=== PATIENT | male | born 1980 | race African-American/Black ===

== ENCOUNTER 2020-04-29 20:50 | Emergency (ER) | payer SELFPAY ==
[~2020-04-29] VITALS: Ht 177.8 cm; Wt 78.2 kg
[2020-04-29 20:58] VITALS: BP 159/111
[2020-04-29] MEDS ORDERED: MUPI22OI2 TP (21:33)
[2020-04-29] MEDS ORDERED: CLOT30SO2 TP (21:33)
[2020-04-29] MEDS ORDERED: CLIN300C9 PO (21:33)
[2020-04-29] MEDS ORDERED: TRAM50TA PO (21:33)
--- NOTE | 2020-04-29 21:34 | PHYS DOC ---
Past Medical History Past Medical History: No Pertinent History (JUVE BRANDON APRN) Past Surgical History: Other Additional Past Surgical Histo: HERNIA (JUVE BRANDON APRN) Smoking Status: Current Every Day Smoker Alcohol Use: None (JUVE BRANDON APRN) General Adult EDM: Chief Complaint: DENTAL PROBLEM HPI: HPI: Patient is a 39 year old male with no significant medical history who presents to the ED today complaining of 10 out of 10 right upper gum dental pain, symptoms began a month ago. Patient states he has an appointment with a dentist on Thursday this week and would like to be on antibiotics before his appointment. Denies any fever. He is also complaining of a rash on the right inner ankle that he states began the same time the tooth pain began. Patient denies anything specifically exacerbating or relieving his dental pain. He states his wisdom tooth are growing sideways on the right upper gum (JUVE BRANDON APRN) Review of Systems: Review of Systems: Constitutional: Denies fever or chills. [] HENT: Reports right upper gum dental pain. Denies nasal congestion or sore throat. [] Musculoskeletal: Denies back pain or joint pain. [] Integument: Reports rash to the right inner ankle Neurologic: Denies headache, focal weakness or sensory changes. [] Psychiatric: Denies depression or anxiety. [] (JUVE BRANDON APRN) Heart Score: Risk Factors: Risk Factors: DM, Current or recent (<one month) smoker, HTN, HLP, family history of CAD, obesity. Risk Scores: Score 0 - 3: 2.5% MACE over next 6 weeks - Discharge Home Score 4 - 6: 20.3% MACE over next 6 weeks - Admit for Clinical Observation Score 7 - 10: 72.7% MACE over next 6 weeks - Early Invasive Strategies (JUVE BRANDON APRN) Current Medications: Current Medications Medications (Trade) Dose Ordered Sig/Kasey Start Time Stop Time Status Last Admin Dose Admin Diphtheria/ Tetanus/Acell Pertussis (ADACEL TDap SYRINGE) 0.5 ml ONCE ONCE 04/29/20 22:00 04/29/20 22:01 (JUVE BRANDON APRN) Allergies: Allergies: Allergies Coded Allergies Type Severity Reaction Last Updated Verified Penicillins Allergy Intermediate 04/29/20 Yes amoxicillin Allergy Intermediate 04/29/20 Yes (JUVE BRANDON APRN) Physical Exam: PE: Constitutional: Well developed, well nourished, no acute distress, non-toxic appearance. [] HENT: Normocephalic, atraumatic, bilateral external ears normal, oropharynx moist, no oral exudates, nose normal. [] Right upper gum with no obvious dental infection. No gum erythema. Skin: Right medial ankle with an area of dry scaly skin with slight erythema. No drainage. Back: No tenderness, no CVA tenderness. [] Extremities: No tenderness, no cyanosis, no clubbing, ROM intact, no edema. [] Neurologic: Alert and oriented X 3, normal motor function, normal sensory function, no focal deficits noted. [] Psychologic: Affect normal, judgement normal, mood normal. [] (JUVE BRANDON APRN) Current Patient Data: Vital Signs: Vital Signs Date Time Temp Pulse Resp B/P (MAP) Pulse Ox O2 Delivery O2 Flow Rate FiO2 04/29/20 20:58 98.9 83 20 159/111 (127) 97 Room Air 98.9 (JUVE BRANDON APRN) EKG: EKG: [] (JUVE BRANDON APRN) Radiology/Procedures: Radiology/Procedures: [] (JUVE BRANDON APRN) Course & Med Decision Making: Course & Med Decision Making Pertinent Labs and Imaging studies reviewed. (See chart for details) This is a 39-year-old male patient presenting to the ED today with dental pain as well as skin infection on the right medial ankle. The infection on the medial ankle appears to be a mix of fungal and bacterial skin infection. Discharged on clindamycin as well as Bactroban ointment and clotrimazole for the skin infection on the medial ankle. Provided reinforcing steel erector to follow-up as well as instructed to follow-up with his dentist on Thursday. Tetanus updated (JUVE BRANDON APRN) Lisandra Disclaimer: Lisandra Disclaimer: This electronic medical record was generated, in whole or in part, using a voice recognition dictation system. (JUVE BRANDON APRN) Departure Departure Impression: Primary Impression: Dentalgia Additional Impressions: Cutaneous candidiasis Skin infection Disposition: 01 DC HOME SELF CARE/HOMELESS Condition: STABLE Referrals: FAUSTINO MOELLER MD follow up in 2 weeks for the skin infection Patient Instructions: Cutaneous Candidiasis, Dental Pain, Skin Infections Additional Instructions: You were evaluated in the emergency room. Please follow-up with your dentist in the course of this week. Also follow-up with the provided reinforcing steel erector for the skin infection on your right foot. Use the prescribed medications as ordered. Scripts Tramadol Hcl (TRAMADOL HCL) 50 Mg Tablet 50 MG PO Q6HRS PRN for PAIN, #14 TAB Prov: JUVE BRANDON APRN 04/29/20 Clotrimazole (CLOTRIMAZOLE) 30 Ml Solution 1 APPLIC TP TID, #30 GM Prov: JUVE BRANDON APRN 04/29/20 Mupirocin (MUPIROCIN OINTMENT) 22 Gm Oint...g. 1 ABDOULAYE TP TID for WOUND CARE, #1 TUBE Prov: JUVE BRANDON APRN 04/29/20 Clindamycin Hcl (CLINDAMYCIN HCL) 300 Mg Capsule 1 CAP PO TID, #21 CAP Prov: JUVE BRANDON APRN 04/29/20 Attending Signature Attending Signature I have reviewed the PA/REGISTERED DIETITIAN's note and plan of care. I was available for consultation as needed during the patient's visit in the emergency department. I agree with the clinical impression, plan, and disposition. (MELVA MITTAL DO) JUVE BRANDON APRN Apr 29, 2020 21:34 MELVA MITTAL DO Apr 30, 2020 01:01
[2020-04-29] MEDS ORDERED: DIPH,PERTUSS(ACELL),TET VAC/PF 0.5 ML SYRINGE. VAX IM ONE (22:00)
== END 2020-04-29 21:44 | disposition home or self-care (01) ==
LOC: ER 20:50
DX: K08.89 Other specified disorders of teeth and supporting structures (principal); B37.2 Candidiasis of skin and nail; L08.89 Other specified local infections of the skin and subcutaneous tissue; F17.200 Nicotine dependence, unspecified, uncomplicated; Z88.0 Allergy status to penicillin; Z88.1 Allergy status to other antibiotic agents
CPT/HCPCS: 90471; 90715; 99283

== ENCOUNTER 2021-04-08 11:53 | Emergency (ER) | payer SELFPAY ==
[~2021-04-08] VITALS: Ht 180.3 cm; Wt 85.5 kg
[~2021-04-08 11:53] MED LIST: CLIN-94 PO; CLOT30SO2 TP; MUPI22OI2 TP; TRAM50TA PO
[2021-04-08 14:38] LABS: INFLUENZA A PATIENT NEGATIVE (NEGATIVE); INFLUENZA B PATIENT NEGATIVE (NEGATIVE)
--- NOTE | 2021-04-08 15:08 | PHYS DOC ---
Past Medical History Past Medical History: No Pertinent History Past Surgical History: Other Additional Past Surgical Histo: HERNIA Smoking Status: Light Tobacco Smoker Alcohol Use: Occasionally General Adult EDM: Chief Complaint: COUGH HPI: HPI: 40-year-old male past medical history of tobacco use, presents to the ED with complaints of " cough and a cold 2 weeks ago," after being outside in the cold. Reports associated runny nose, cough and nasal mucus. Also reports a draft in his house. States he missed a few days from work and is requesting a work note. Reports delay in seeking medical care due to loss of a close family friend to [place]. Received his Pfizer vaccination. Is currently asymptomatic-states his sxs have resolved. Review of Systems: Review of Systems: Constitutional: Denies fever or chills. [] Eyes: Denies change in visual acuity. [] HENT: Denies rhinorrhea or sore throat. [] Respiratory: Denies mopped assist or increased work of breathing Cardiovascular: Denies chest pain or edema. [] GI: Denies nausea or vomiting Musculoskeletal: Denies back pain or joint pain. [] Integument: Denies rash or diaphoresis Neurologic: Denies headache, focal weakness or sensory changes. [] Psychiatric: Denies depression or anxiety. [] Heart Score: C/O Chest Pain: No Risk Factors: Risk Factors: DM, Current or recent (<one month) smoker, HTN, HLP, family history of CAD, obesity. Risk Scores: Score 0 - 3: 2.5% MACE over next 6 weeks - Discharge Home Score 4 - 6: 20.3% MACE over next 6 weeks - Admit for Clinical Observation Score 7 - 10: 72.7% MACE over next 6 weeks - Early Invasive Strategies Allergies: Allergies: Allergies Coded Allergies Type Severity Reaction Last Updated Verified Penicillins Allergy Intermediate 04/29/20 Yes amoxicillin Allergy Intermediate 04/29/20 Yes Physical Exam: PE: Constitutional: Well developed, well nourished, no acute distress, non-toxic appearance. HENT: Normocephalic, atraumatic, Eyes: EOMI, conjunctiva normal, no discharge. Neck: Normal range of motion, supple, Cardiovascular: S1/2 present, regular rhythm Lungs & Thorax: Speaking in full sentences, bilateral equal chest rise, no tachypnea or increased work of breathing Skin: Warm, dry, no erythema, no rash. [] Extremities: No tenderness, no cyanosis, Neurologic: Alert and oriented X 3, normal motor function, normal sensory function, no focal deficits noted. [] Psychologic: Affect normal, judgement normal, mood normal. [] Current Patient Data: Labs: Laboratory Tests Test 04/08/21 14:15 Influenza Type A Antigen Negative (NEGATIVE) Influenza Type B Antigen Negative (NEGATIVE) SARS-CoV-2 Antigen (Rapid) Negative (NEGATIVE) Vital Signs: Vital Signs Date Time Temp Pulse Resp B/P (MAP) Pulse Ox O2 Delivery O2 Flow Rate FiO2 04/08/21 14:09 90 16 146/90 (108) 99 Room Air 04/08/21 12:02 98.2 98.2 EKG: EKG: [] Radiology/Procedures: Radiology/Procedures: [] Course & Med Decision Making: Course & Med Decision Making Pertinent Labs and Imaging studies reviewed. (See chart for details) Encounter for work note after upper respiratory infection has resolved. Patient asymptomatic and hemodynamically stable. Rapid flu and Covid test are negative. Will discharge home with strict ED return precautions were given for increased work of breathing, shortness of breath or chest pain. Encouraged urgent outpatient follow-up with PMD for routine care. Life-threatening processes were considered but are low suspicion at this time, given history, physical exam and ED workup. Pt was educated on all prescription medications and adverse effects. All patient's questions were answered and pt was stable at time of discharge. Life/limb-threatening differential includes but is not limited to, airway emergency or respiratory distress/ARDS or fatigue or head or neck swelling, toxidrome, sepsis/shock, angioedema, anaphylaxis, congestive heart failure, myocarditis, acute myocardial infarction, dysrhythmias, cardiomyopathy, venous thromboembolism, pulmonary emboli, acute necrotizing hemorrhagic encephalopathy ,cerebral venous thrombosis, meningitis, encephalitis or CVA. I have spoken with the patient and/or caregivers. I explained the patient's condition, diagnoses and treatment plan based on the information available to me at this time. I have answered the patient and/or caregiver's questions and addressed any concerns. The patient and/or caregivers have a good understanding of patient's diagnosis, condition and treatment plan as can be expected at this point. Vital signs have been stable. Patient's condition is stable and appropriate for discharge from the emergency department. Patient will pursue further outpatient evaluation with primary care physician or other designated or consulting physician as outlined in the discharge ins tructions. The patient and/or caregivers are agreeable to this plan of care and follow-up instructions have been explained in detail. The patient and/or caregivers have received these instructions in written form and have expressed an understanding of the discharge instructions. The patient and/or caregivers are aware that any significant change of condition or worsening of symptoms should prompt immediate return to this or the closest emergency department or call to 911Cielo Fry Disclaimer: Lisandra Disclaimer: This electronic medical record was generated, in whole or in part, using a voice recognition dictation system. Departure Departure Impression: Primary Impression: Viral URI with cough Additional Impression: Encounter to obtain excuse from work Disposition: HOME / SELF CARE / HOMELESS Condition: STABLE Referrals: NO PCP (PCP) Follow-up with your primary care physician for routine care OR FOLLOW UP WITH FAMILY MEDICINE: [address], [address] [place] [address] Patient Instructions: Upper Respiratory Infection, Adult Additional Instructions: EMERGENCY DEPARTMENT GENERAL DISCHARGE INSTRUCTIONS Thank you for coming to [facility] Emergency Department (ED) today and trusting us with you care. We trust that you had a positive experience in our Emergency Department. If you wish to speak to the department management, you may call the Director at [phone]. YOUR FOLLOW UP INSTRUCTIONS ARE FOLLOWS: 1. Do you have a private Doctor? If you do not have a private doctor, please ask for a resource list of physicians or clinics that may be able to assist you with follow up care. 2. The Emergency Physicain has interpreted your x-rays. The X-Ray specialist will also review them. If there is a change in the findings, you will be notified in 48 hours when at all possible. 3. A lab test or culture has been done, your results will be reviewed and you will be notified if you need a change in treatment. ADDITIONAL INSTRUCTIONS AND INFORMATION: 1. Your care today has been supervised by a physician who is specially trained in emergency care. Many problems require more than one evaluation for a complete diagnosis and treatment. We recommend that you schedule your follow up appointment as recommended to ensure complete treatment of you illness or injury. If you are unable to obtain follow up care and continue to have a problem, or if your condition worsens, we recommend that you return to the ED. 2. We are not able to safely determine your condition over the phone nor are we able to give sound medical advice over the phone. For these safety reasons, if you call for medical advice we will ask you to come to the ED for further evaluation. 3. If you have any questions regarding these discharge instructions please call the ED at [phone]. SAFETY INFORMATION: In the interest of safety, wellness, and injury prevention; we encourage you to wear your sealbelt, if you smoke; quite smoking, and we encourage family to use a protective helmet for bicycling and other sporting events that present an increased risk for head injury. IF YOUR SYMPTOMS WORSEN OR NEW SYMPTOMS DEVELOP, OR YOU HAVE CONCERNS ABOUT YOUR CONDITION; OR IF YOUR CONDITION WORSENS WHILE YOU ARE WAITING FOR YOUR FOLLOW UP APPOINTMENT; EITHER CONTACT YOUR PRIMARY CARE DOCTOR, THE PHYSICIAN WHOSE NAME AND NUMBER YOU WERE GIVEN, OR RETURN TO THE ED IMMEDIATELY. [facility] DO Apr 08, 2021 15:08
[2021-04-08 15:30] VITALS: BP 126/77
--- NOTE | 2021-04-09 16:59 | NUR ---
IP: Informed pt of negative covid test. Pt verbalized understanding.
== END 2021-04-08 15:54 | disposition home or self-care (01) ==
LOC: ER 11:53
DX: J06.9 Acute upper respiratory infection, unspecified (principal); Z20.822 Contact with and (suspected) exposure to COVID-19; B97.89 Other viral agents as the cause of diseases classified elsewhere; Z72.0 Tobacco use
CPT/HCPCS: 87426; 87804; 99283; U0003; U0005